=== PATIENT | female | born 1990 | race African-American/Black ===

== ENCOUNTER 2020-10-15 03:25 | Emergency (ER) | payer OTHER ==
[~2020-10-15] VITALS: Ht 170.2 cm; Wt 90.7 kg
[2020-10-15] MEDS ORDERED: INVEGA 3 MG3 MG PO (03:42)
[2020-10-15] MEDS ORDERED: BENZTROPINE MES1 MG PO (03:42)
[2020-10-15] MEDS ORDERED: HYDROXYZINE HCL25 M2 PO (03:43)
[2020-10-15] MEDS ORDERED: DESYREL150 MG PO (03:43)
[2020-10-15 04:01] LABS: ABSOLUTE BASOPHILS 0.1 thou/uL (0.0-0.2); ABSOLUTE EOSINOPHILS 0.3 thou/uL (0.0-0.7); ABSOLUTE LYMPHOCYTES 1.9 thou/uL (0.8-5.3); ABSOLUTE MONOCYTES 0.7 thou/uL (0.0-1.2); ABSOLUTE NEUTROPHILS 6.5 thou/uL (1.6-8.1); BASOPHILS 0.6 %; EOSINOPHILS 3.3 %; HEMATOCRIT 36.3 % (37.0-47.0); HEMOGLOBIN 12.2 gm/dL (12.0-15.0); LYMPHOCYTES 20.3 %; MCH 29.5 pg (26.0-34.0); MCHC 33.5 g/dL (28.0-37.0); MPV 7.7 fl. (7.2-11.1); NUCLEATED RBCS 0 /100WBC; PLATELET COUNT* 275 thou/uL (150-400); POLYS 68.8 %; RBC 4.13 mil/uL (4.20-5.00); RDW-CV 13.5 % (10.5-14.5); WBC 9.4 thou/uL (4.0-11.0)
[2020-10-15 04:14] LABS: CALCIUM 9.4 mg/dL (8.5-10.1); CREATININE 0.8 mg/dL (0.6-1.3); POTASSIUM 3.5 mmol/L (3.5-5.1)
[2020-10-15 04:18] LABS: ALBUMIN 3.4 g/dL (3.4-5.0); TOTAL BILIRUBIN 0.2 mg/dL (<0.1-1.0); TOTAL PROTEIN 6.4 g/dL (6.4-8.2)
[2020-10-15 04:23] LABS: URINE BILIRUBIN NEGATIVE (Negative); URINE BLOOD NEGATIVE (Negative); URINE CLARITY CLEAR; URINE COLOR YELLOW; URINE GLUCOSE-RANDOM NEGATIVE (Negative); URINE KETONES NEGATIVE (Negative); URINE LEUKOCYTES-REFLEX NEGATIVE (Negative); URINE NITRITE-REFLEX NEGATIVE (Negative); URINE PROTEIN NEGATIVE (Negative); URINE UROBILINOGEN 0.2 E.U./dl (0.2-1.0)
[2020-10-15 04:28] LABS: AMP/METHAMP Negative (Negative); BARBITURATES Negative (Negative); BENZODIAZEPINES Negative (Negative); COCAINE Negative (Negative); METHADONE Negative (Negative); OPIATES Negative (Negative); PCP Negative (Negative); THC Negative (Negative)
[2020-10-15 04:30] LABS: ACETAMINOPHEN < 2 ug/mL (10-30); ALCOHOL < 10 mg/dL (<10); SALICYLATE < 2.8 mg/dL (2.8-20.0)
[2020-10-15 06:28] VITALS: BP 150/86
== END 2020-10-15 06:30 | disposition home or self-care (01) ==
LOC: M.ERS 03:25
PROVIDERS: Emergency Medicine
DX: R45.851 Suicidal ideations (principal); F32.9 Major depressive disorder, single episode, unspecified; F41.9 Anxiety disorder, unspecified; F20.9 Schizophrenia, unspecified; Z79.899 Other long term (current) drug therapy

== ENCOUNTER 2020-10-20 18:04 | Emergency (ER) | payer OTHER ==
[~2020-10-20] VITALS: Ht 172.7 cm; Wt 95.3 kg
[~2020-10-20 18:04] MED LIST: BENZTROPINE MES1 MG PO; DESYREL150 MG PO; HYDROXYZINE HCL25 M2 PO; INVEGA 3 MG3 MG PO
[2020-10-20 18:50] LABS: URINE BILIRUBIN NEGATIVE (Negative); URINE BLOOD NEGATIVE (Negative); URINE CLARITY CLEAR; URINE COLOR YELLOW; URINE GLUCOSE-RANDOM NEGATIVE (Negative); URINE KETONES NEGATIVE (Negative); URINE LEUKOCYTES-REFLEX NEGATIVE (Negative); URINE NITRITE-REFLEX NEGATIVE (Negative); URINE PROTEIN NEGATIVE (Negative); URINE UROBILINOGEN 0.2 E.U./dl (0.2-1.0)
[2020-10-20 18:58] LABS: AMP/METHAMP Negative (Negative); BARBITURATES Negative (Negative); BENZODIAZEPINES Negative (Negative); COCAINE Negative (Negative); METHADONE Negative (Negative); OPIATES Negative (Negative); PCP Negative (Negative); THC Negative (Negative)
[2020-10-20 20:17] LABS: ABSOLUTE BASOPHILS 0.1 thou/uL (0.0-0.2); ABSOLUTE EOSINOPHILS 0.1 thou/uL (0.0-0.7); ABSOLUTE LYMPHOCYTES 1.9 thou/uL (0.8-5.3); ABSOLUTE MONOCYTES 0.4 thou/uL (0.0-1.2); ABSOLUTE NEUTROPHILS 5.3 thou/uL (1.6-8.1); BASOPHILS 0.7 %; EOSINOPHILS 1.8 %; HEMATOCRIT 36.7 % (37.0-47.0); HEMOGLOBIN 12.3 gm/dL (12.0-15.0); LYMPHOCYTES 24.4 %; MCH 29.2 pg (26.0-34.0); MCHC 33.5 g/dL (28.0-37.0); MCV 87.2 fL (80.0-100.0); MONOCYTES 5.4 %; MPV 7.8 fl. (7.2-11.1); NUCLEATED RBCS 0 /100WBC; PLATELET COUNT* 298 thou/uL (150-400); POLYS 67.7 %; RBC 4.21 mil/uL (4.20-5.00); WBC 7.8 thou/uL (4.0-11.0)
[2020-10-20 20:25] LABS: CALCIUM 9.2 mg/dL (8.5-10.1); CREATININE 0.9 mg/dL (0.6-1.3); POTASSIUM 3.5 mmol/L (3.5-5.1)
[2020-10-20 20:35] LABS: ALBUMIN 3.6 g/dL (3.4-5.0); TOTAL BILIRUBIN 0.3 mg/dL (<0.1-1.0); TOTAL PROTEIN 7.2 g/dL (6.4-8.2)
[2020-10-20 20:43] LABS: ALCOHOL < 10 mg/dL (<10); SALICYLATE < 2.8 mg/dL (2.8-20.0)
[2020-10-20 20:44] LABS: ACETAMINOPHEN < 2 ug/mL (10-30)
[2020-10-21 02:01] VITALS: BP 136/73
== END 2020-10-21 02:02 | disposition home or self-care (01) ==
LOC: M.ERS 18:04
PROVIDERS: Emergency Medicine Emergency Medical Services
DX: F32.9 Major depressive disorder, single episode, unspecified (principal); F20.9 Schizophrenia, unspecified; Z79.899 Other long term (current) drug therapy; Z88.8 Allergy status to other drugs, medicaments and biological substances

== ENCOUNTER 2020-12-08 16:17 | Emergency (ER) | payer OTHER ==
[~2020-12-08] VITALS: Ht 177.8 cm; Wt 104.3 kg
--- NOTE | ~2020-12-08 | EMS ---
[facility] [address] [place] [address] EMS Patient Care Report Name: JAYDA BERUMEN Room: [facility]#: [id number] Admission: 12/08/20 Attend Phys: Discharge: Date of : 89 Report #: [id number] THIS REPORT FOR: //name// Report Transmitted: 12/08/2020 20:48 EMS Care Summary JOSH [place] Incident [id number] @ 12/08/2020 15:42 Incident Location [address] [place] [address] Patient Jayda Berumen Female, 30 Years 1990 Patient Address [address] [place] [address] Patient Allergies No known allergies, Chief Complaint Confusion Disposition Transported No Lights/[place] Dispatch Reason Unknown Problem/Person Down Transported To [facility] Narrative [facility] dispatched to the above address for stage for police for an altered person. [facility] responded immediately to the scene following police securing the scene for safety. Arrival to find the pt sitting upright on a grassy area, near the west bound lanes of [employer] and the [employer] business. Police on scene stated they had received multiple calls regarding the pt "rolling round" inside of a car wash without a shirt on. They arrived on scene and tried to question the pt who is unaware of her name, location, year or events currently happening. The pt was alert to EMS presence, in no apparent distress. The pt was overly happy, laughing at questions by EMS. The pt was wearing a strap of [facility] [address] [place] [address] EMS Patient Care Report Name: JAYDA BERUMEN Room: [facility]#: [id number] Admission: 12/08/20 Attend Phys: Discharge: Date of : 89 Report #: [id number] shirt across her breasts and had bright pink make up on her lips and eyes, as well as black marker on her face in multiple shapes. The pt was unsure of any illicit drug or alcohol use. No paraphernalia was found in her belongings on scene. A police ticket was found in her backpack given by [place] police the day prior. PT answered when her name was called from the ticket. The pt c/o R leg pain and feeling hungry. ALS Assessment performed; airway intact. Lung sounds clear, equal, bi lateral. Pulses palpable at radial, strong, regular. GCS 14- pt alert to verbal stimuli, obeys commands, confused. Skin pink, warm, dry. MIKEL. R leg pain w/ palpation and movement, pedal pulses present, able to bare weight, no swelling or deformity to R leg. PT assisted to EMS cot via stand and pivot w/o complication. Four point seat belts applied. monitor technician placed. Vital signs obtained. D Stick. Glucose gel w/ success. D stick. Pt transported to [facility] ED. PT unable to sign for consent of transport and billing. Pt assisted to ED bed via self move w/o complication. Report given to RN, signature obtained. [facility] returned to service. EOR. Initial Vitals @16:10 @16:06P: 88,R: 18,BP: 138/88, @16:13P: 98,R: 18,BP: 131/80, @16:06GCS: 14, @16:13GCS: 14, @16:00Glucose: 58, Assessments @15:53MENTAL:SKIN:HEENT:LUNG SOUNDS:ABDOMEN:PELVIS//GI:EXTREMITIES:PULSE:NEURO: Impression Diabetic Hypoglycemia Procedures @16:01Other - Medication - 13.000 Grams (gms) - OralResponse: Unchanged@16:103-Lead ECGResponse: UnchangedSucceeded Timeline 15:42,Call Received 15:42,Dispatch Notified 15:42,Psap Call 15:42,Dispatched 15:43,En Route 15:52,On Scene 15:53,At Patient 16:00,BP: / M,PULSE: ,RR: R,SPO2: Ox,ETCO2: ,B,PAIN: ,GCS: , 16:01,Other - Medication - 13.000 Grams (gms) - Oral,Response: [place] [address] EMS Patient Care Report Name: JAYDA BERUMEN Room: [facility]#: [id number] Admission: 12/08/20 Attend Phys: Discharge: Date of : 89 Report #: [id number] 16:04,Depart Scene 16:06,BP: 138/88 M,PULSE: 88,RR: 18 R,SPO2: Ox,ETCO2: ,BG: ,PAIN: ,GCS: , 16:06,BP: / M,PULSE: ,RR: R,SPO2: Ox,ETCO2: ,BG: ,PAIN: ,GCS: 14, 16:10,3-Lead ECG,Response: UnchangedSucceeded, 16:10,BP: / M,PULSE: ,RR: R,SPO2: Ox,ETCO2: ,BG: ,PAIN: ,GCS: , 16:13,BP: 131/80 M,PULSE: 98,RR: 18 R,SPO2: Ox,ETCO2: ,BG: ,PAIN: ,GCS: , 16:13,BP: / M,PULSE: ,RR: R,SPO2: Ox,ETCO2: ,BG: ,PAIN: ,GCS: 14, 16:15,At Destination 16:27,Call Closed Disclaimer v1.1 Copyright 2020 [employer] This EMS Care Summary contains data elements from the applicable legal record (which may be displayed differently). It is designed to provide pertinent information for the following purposes: continuity of care, clinical quality, and state data reporting. The complete legal record is available to ED staff and administrators of the receiving hospital in [employer] Patient Tracker. All data is provided "as is."
[2020-12-08 16:47] LABS: ABSOLUTE EOSINOPHILS 0.1 thou/uL (0.0-0.7); ABSOLUTE LYMPHOCYTES 1.7 thou/uL (0.8-5.3); ABSOLUTE MONOCYTES 0.7 thou/uL (0.0-1.2); ABSOLUTE NEUTROPHILS 5.8 thou/uL (1.6-8.1); BASOPHILS 0.4 %; EOSINOPHILS 1.5 %; HEMATOCRIT 38.8 % (37.0-47.0); HEMOGLOBIN 12.9 gm/dL (12.0-15.0); LYMPHOCYTES 20.1 %; MCH 28.7 pg (26.0-34.0); MCHC 33.2 g/dL (28.0-37.0); MCV 86.4 fL (80.0-100.0); MONOCYTES 8.2 %; MPV 7.6 fl. (7.2-11.1); NUCLEATED RBCS 0 /100WBC; PLATELET COUNT* 279 thou/uL (150-400); POLYS 69.8 %; RBC 4.49 mil/uL (4.20-5.00); RDW-CV 13.1 % (10.5-14.5); WBC 8.3 thou/uL (4.0-11.0)
[2020-12-08 16:56] LABS: URINE BLOOD NEGATIVE (Negative); URINE CLARITY CLEAR; URINE COLOR YELLOW; URINE GLUCOSE-RANDOM NEGATIVE (Negative); URINE KETONES 1+ (Negative); URINE LEUKOCYTES-REFLEX NEGATIVE (Negative); URINE NITRITE-REFLEX NEGATIVE (Negative); URINE PROTEIN NEGATIVE (Negative); URINE SPECIFIC GRAVITY >= 1.030 (1.005-1.030); URINE UROBILINOGEN 0.2 E.U./dl (0.2-1.0)
[2020-12-08 16:59] LABS: APTT 27.6 Seconds (25.0-31.3); INR 1.1
[2020-12-08 17:00] LABS: CALCIUM 10.2 mg/dL (8.5-10.1); CREATININE 0.9 mg/dL (0.6-1.3); POTASSIUM 3.4 mmol/L (3.5-5.1)
[2020-12-08 17:00] LABS: ICTOTEST (BILI CONFIRMATORY) Negative (Negative); URINE BILIRUBIN 1+ (Negative)
[2020-12-08 17:03] LABS: SALICYLATE < 2.8 mg/dL (2.8-20.0)
[2020-12-08 17:04] LABS: ACETAMINOPHEN < 2 ug/mL (10-30); ALCOHOL < 10 mg/dL (<10)
[2020-12-08 17:11] LABS: ALBUMIN 4.2 g/dL (3.4-5.0); TOTAL BILIRUBIN 0.5 mg/dL (<0.1-1.0); TOTAL PROTEIN 6.9 g/dL (6.4-8.2)
[2020-12-08 17:12] LABS: AMP/METHAMP Negative (Negative); BARBITURATES Negative (Negative); BENZODIAZEPINES Negative (Negative); COCAINE Negative (Negative); METHADONE Negative (Negative); OPIATES Negative (Negative); PCP Negative (Negative); THC Negative (Negative)
[2020-12-08 23:19] VITALS: BP 159/88
--- NOTE | 2020-12-09 12:37 | EKG ---
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
== END 2020-12-08 23:19 | disposition home or self-care (01) ==
LOC: M.ERS 16:17
PROVIDERS: Emergency Medicine Emergency Medical Services
DX: R41.82 Altered mental status, unspecified (principal); Z76.5 Malingerer [conscious simulation]; Z20.822 Contact with and (suspected) exposure to COVID-19; R05 Cough; M79.604 Pain in right leg; M79.605 Pain in left leg; F31.9 Bipolar disorder, unspecified; F20.9 Schizophrenia, unspecified; F41.9 Anxiety disorder, unspecified; Z79.899 Other long term (current) drug therapy